=== PATIENT | female | born 1995 | race Caucasian/White ===

== ENCOUNTER 2021-03-09 21:09 | Inpatient (IN) | payer OTHER ==
[~2021-03-09] VITALS: Ht 167.6 cm; Wt 102.3 kg
--- NOTE | 2021-03-09 21:15 | NUR ---
G1 at 38 weeks and 5 days arrives to unit with complaint of spontaneous rupture of membranes around 1830. Pt reports feeling small amounts of leaking intermittently. Pt is a type 2 diabetic. Pt reports feeling good movement. Reports occasionally feeling mild contractions. Denies headaches, blurry vision, or RUQ pain. Clean gown on. Oriented to room, call light within reach, bed in low and locked position. Admission assessment started. Vital signs obtained. Plan of care reviewed with patient and spouse. Amnitrace inconclusive. SVE /-3, membranes felt on exam, no leaking of fluid during exam. ROM plus sent to lab - positive result.
[2021-03-09] MEDS ORDERED: GLUCOPHAGE1000 MG PO (21:30)
[2021-03-09] MEDS ORDERED: PRENATAL TABLET PO (21:31)
[2021-03-09 21:45] VITALS: BP 125/83; PULSE 96; TEMP 97.9
[2021-03-09 22:15] VITALS: BP 130/82; PULSE 98
[2021-03-09 22:45] VITALS: BP 130/82; PULSE 97
--- NOTE | 2021-03-09 22:45 | NUR ---
Pt checked own blood sugar with own glucometer. Blood sugar 89.
[2021-03-09 23:15] VITALS: PULSE 99
[2021-03-09 23:45] VITALS: BP 125/78; PULSE 96
[2021-03-10] VITALS (33 sets, daily range): BP systolic 114–154; BP diastolic 59–85; PULSE 82–117; TEMP 97.7–98.6
--- NOTE | 2021-03-10 03:20 | NUR ---
PT UP TO BATHROOM, REQUEST NEW PERIPAD DUE TO FLUID ON CURRENT ONE. PERIPAD SWABBED, + FOR AMNIOTIC FLUID. WILL ADMIT PT PER DR. JONES'S PREVIOUS ORDERS.
[2021-03-10 04:27] LABS: BASO % 0.3 % (0.0-2.0); EOS # 0.1 (0.0-0.7); GRAN # 8.2 (1.4-6.5); GRAN % 70.7 % (42.2-75.2); HEMATOCRIT 36.2 % (37.0-47.0); HEMOGLOBIN 12.1 g/dl (12.5-16.0); LYMPH # 2.4 (1.2-3.4); MEAN CELL VOLUME 87 fl (80.0-100.0); MEAN CORPUSCULAR HEMOGLOBIN 29 pg (27.0-31.0); MEAN CORPUSCULAR HGB CONC 33 g/dl (33.0-37.0); MEAN PLATELET VOLUME 11.5 fl (7.4-10.4); MONO # 0.8 (0.1-0.6); MONO % 6.6 % (1.7-9.3); PLATELET COUNT 192 K/mm3 (130-400); RED BLOOD COUNT 4.14 M/mm3 (4.10-5.30); REDCELL DISTRIBUTION WIDTH-CV 13.3 % (11.5-14.5)
--- NOTE | 2021-03-10 07:00 | NUR ---
BS 74. DR DODD IN AT 0653. SVE . WANTS PITOCIN TO BE STARTED. 0700 PITOCIN AT 2MU.
--- NOTE | 2021-03-10 07:15 | NUR ---
CONTRACTIONS DIFFICULT TO MONITOR. REPOSITIONED TOCO
--- NOTE | 2021-03-10 08:15 | NUR ---
PT HAVING A GREAT DEAL OF PAIN WITH CONTRACTIONS. WANTING AN EPIDURAL. FLUID BOLUS STARTED. NOTIFIED INESSA CARBALLO.
--- NOTE | 2021-03-10 08:30 | NUR ---
0820 Jakob.INESSA ROWE, IN AT 0820. PT SITTING UP FOR EPIDURAL. UNABLE TO MONITOR FHT'S WHILE PT SITTING. TEST DOSE AT 0828 WITH NO ABNORMAL SYMPTOMS OBSERVED OR REPORTED. BLOOD SURGAR 85
--- NOTE | 2021-03-10 09:00 | NUR ---
FHT'S WITH RECURRENT LATE DECELS AND DIFFICULT TO MONITOR. REPOSITIONED TO WEDGE RIGHT WITH NO CHANGE. REPOSITIONED TO LEFT LATERAL WITH NO CHANGE. DR DODD IN AT [address] FSE
--- NOTE | 2021-03-10 09:15 | NUR ---
FSE PLACED AT [address] DODD. SVE . RECURRENT LATE DECELS CONTINUE. PITOCIN OFF AT 09. EPEHDRINE 10MG GIVEN AT 0908. O2 ON 10L PER REBREATHER REPEAT SVE . EXPLAINED PLAN OF CARE TO PT.
--- NOTE | 2021-03-10 09:30 | NUR ---
O2 OFF AT 0930. NO FURTHER DECELS IN FHT'S. PITOCIN REMAINS OFF.
--- NOTE | 2021-03-10 10:00 | NUR ---
DR DODD IN AT 0952. SVE /1. DR LECHUGA PITOCIN RESTARTED. PITOCIN AT 2MU AT 0953
--- NOTE | 2021-03-10 10:45 | NUR ---
MELÉNDEZ INSERTED WITH CLEAR YELLOW URINE RETURNED. SVE 9-10/100/0. PERICARE PERFORMED.
--- NOTE | 2021-03-10 11:15 | NUR ---
DR DODD AT BEDSIDE REPAIRING PERINEUM. FUNDUS FIRMS WITH MASSAGE. CLOTS MANUALLY REMOVED BY DR. SHIELDS RUNNING AT 333ML/HR.
--- NOTE | 2021-03-10 11:15 | NUR ---
PT WITH COMPLETE DILATION. FHT'S WITH RECURRENT VARIABLES. DR DODD CALLED AT 1110 TO CHECK ON HER STATUS SHE IS IN SURGERY. ADVISES TO START PUSHING AND CONTINUE LONG FHT'S REMAIN REASSURING. PUSHING STARTED.
--- NOTE | 2021-03-10 11:30 | NUR ---
PUSHING STOPPED AT 1128 DUE TO PROLONGED LATE DECEL. PITOCIN OFF AT 1130.
--- NOTE | 2021-03-10 11:45 | NUR ---
PHONED DR DODD AT 1134 TO NOTIFY OF LATE DECELS, PITOCIN OFF, AND PUSHING STOPPED. STATES SHE WILL BE HERE IN LESS THAN [address] MOSCOSO AT 1137. MELÉNDEZ REMOVED. OF FEMALE AT 1143. PITOCIN OFF AFTER DELIVERY OF INFANT. SPONTANEOUS DELIVERY OF PLACENTA AT 1145. PITOCIN ON 333ML/HR AFTER DELIVERY. DR DODD AT BEDSIDE REPAIRING PERINEUM.
--- NOTE | 2021-03-10 15:00 | NUR ---
PT TO BATHROOM. AMBULATES WITHOUT DIFFICULTY. EPIDURAL CATHETER REMOVED. PERICARE PERFORMED. NEW GOWN, UNDERWEAR AND PAD ON. AMBULATES TO ROOM.
[2021-03-11 01:00] VITALS: BP 111/63; PULSE 80; TEMP 97.7
[2021-03-11 08:50] VITALS: BP 114/73; PULSE 89; TEMP 97.7
[2021-03-11 21:00] VITALS: BP 130/75; PULSE 88; TEMP 98.6
[2021-03-12 09:00] VITALS: BP 133/78; PULSE 85; TEMP 97.6
[2021-03-12] MEDS ORDERED: IBU800 M1 PO (11:05)
--- NOTE | 2021-03-12 12:45 | NUR ---
Discharge instructions and paperwork reviewed with pt and at the bedside. Both verbalized an understanding, agreed with the plan and state no questions or concerns at this time.
== END 2021-03-12 13:05 | disposition home or self-care (01) | DRG 807 ==
LOC: LDRO 21:09 → LDR 21:15 → OB 03-10 15:23
PROVIDERS: Obstetrics & Gynecology; ADMIT Obstetrics & Gynecology
PROC: 10E0XZZ Delivery of Products of Conception, External Approach (ICD-10-PCS; principal; 2021-03-10)
PROC: 0KQM0ZZ Repair Perineum Muscle, Open Approach (ICD-10-PCS; 2021-03-10)
DX: O24.12 Pre-existing type 2 diabetes mellitus, in childbirth (principal); Z37.0 Single live birth; O99.214 Obesity complicating childbirth; E66.9 Obesity, unspecified; O70.1 Second degree perineal laceration during delivery; E11.9 Type 2 diabetes mellitus without complications; Z3A.38 38 weeks gestation of pregnancy; Z79.84 Long term (current) use of oral hypoglycemic drugs
CPT/HCPCS: J2590; J7120

== ENCOUNTER → 2021-05-31 | Outpatient (CLI) | payer OTHER ==
[~2021-05-31] MED LIST: GLUCOPHAGE1000 MG PO; IBU800 M1 PO; PRENATAL TABLET PO
--- NOTE | 2021-05-31 13:17 | NUR ---
Pt, Daysi Kim, presents for outpatient consult with 3 month old baby girl, Mandi Kim. Pt states in the last 2-3 weeks Mandi does not stay latched well when she does not have her nursing pillow for feedings, so nursing away from home is difficult. She also reports starting to bottle feed and she notices a clicking noise when Mandi nurses. Mandi was born on [birth year] and weighed 7# 5.1oz (3320 gms). Pt reports Mandi has gain about 2 pounds per month for the first two months of life, and that at Mandi's 2 month appointment she weighed 11# 5oz. Today Mandi weighes 12# 6.2oz. Pt latches Mandi to the left breast without the pillow. As soon as the hand supporting the breast is removed, the nipple pulls away from Mandi and she has to be relatched. LC tries to help position Mandi at the breast without the pillow so she aligns better with the natural height of the nipple, but pt and have difficulty being comfortable. Pt support the breast and baby does a little better. Clicking is noted, especially if the breast is starting to pull away from her. After nursing the left side without the pillow, Mandi has a weight gain of 0.8oz (24 gms). Mandi is placed to the right breast, again struggling to remain latched until the pillow is placed. Once she is supported with the pillow Mandi remains at the breast pretty well and clicking is not noted. After the right breast a gain of 20 gms is observed . Pt places her back to the left breast with the support pillow and Mandi has a total gain of 68 gms. Pt states Mandi had a little bit to eat at 11:45, so may not be nursing as well at 1.25 hours later. However, this LC has some concern about milk production. Pt states she has Nexplanon implants placed for control on May 18, which coincides with the change in feeding behavior as well. Research indicates only 0.9% of users report an effect on milk production. Pt states she is able to pump ~ 1oz after breastfeedings, and in place of a she collects 6-8oz. Mandi drinks ~5oz from bottles when fed is this fashion. Discussion included support of breast to keep baby and breast at the same level. Consider finding a smaller pillow to place under Mandi when feeding away from home. Monitor milk production levels; she will return to work Saturday so can quantify volumes through the work day. Consider having a weight check done in ~2 weeks if supply seems to be trending down. POC: Continue to breastfeed ad beulah, monitor milk supply as noted above, find small support pillows to help Mandi feel secure when away from home. F/U: At [address] Lopez, or earlier if milk supply is trending down. Questions invited and answered.
== END ==
LOC: LAC 12:46
DX: Z39.1 Encounter for care and examination of lactating mother (principal); Z71.89 Other specified counseling

== ENCOUNTER 2023-12-22 06:11 | Inpatient (IN) | payer OTHER ==
[~2023-12-22] VITALS: Ht 167.6 cm; Wt 107.3 kg
[2023-12-22] VITALS (36 sets, daily range): BP systolic 108–161; BP diastolic 58–97; PULSE 60–115; TEMP 97.5–97.9
[2023-12-22] MEDS ORDERED: LR 1,000 ML IV SCH (06:30)
[2023-12-22] MEDS ORDERED: LR & Oxytocin 500 ML IV SCH (06:30)
[2023-12-22 07:38] LABS: BASO % 0.4 % (0.0-2.0); EOS # 0.1 K/mm3 (0.0-0.7); EOS % 0.8 % (0.0-4.0); GRAN # 4.7 K/mm3 (1.4-6.5); GRAN % 63.7 % (42.2-75.2); HEMATOCRIT 37.4 % (37.0-47.0); HEMOGLOBIN 12.4 g/dl (12.5-16.0); LYMPH % 27.3 % (20.0-51.0); MEAN CELL VOLUME 85 fl (80.0-100.0); MEAN CORPUSCULAR HEMOGLOBIN 28 pg (27-31); MEAN CORPUSCULAR HGB CONC 33 g/dl (33.0-37.0); MEAN PLATELET VOLUME 11.9 fl (7.4-10.4); MONO # 0.6 K/mm3 (0.1-0.6); MONO % 7.5 % (1.7-9.3); PLATELET COUNT 188 K/mm3 (130-400); RED BLOOD COUNT 4.42 M/mm3 (4.10-5.30); REDCELL DISTRIBUTION WIDTH-CV 13.5 % (11.5-14.5)
--- NOTE | 2023-12-22 07:54 | NUR ---
Pt and spouse arrive ambulatory to unit at 0615 for scheduled induction of labor. Pt changes into gown, EFM explained and placed, VS taken. Pt denies leaking of fluid, contractions, and vaginal bleeding, reports good movement. IV started in left forearm, labs drawn, LR started per protocol. Assessments done, consents signed, plan for induction discussed, pt verbalizes understanding. SVE 1/50/-2, membranes intact.
[2023-12-22 08:24] LABS: ALBUMIN 3.1 gm/dL (3.5-5.0); BILIRUBIN,TOTAL 0.2 mg/dL (0.2-1.2); CALCIUM 9.1 mg/dL (8.4-10.2); CREATININE, serum 0.64 mg/dL (0.57-1.11); POTASSIUM 3.9 mmol/L (3.5-4.5); TOTAL PROTEIN 6.4 gm/dL (6.2-8.1)
[2023-12-22] MEDS ORDERED: diphenhydrAMINE 50 MG/ML 1 ML VIAL IV PRN (08:30)
[2023-12-22] MEDS ORDERED: ePHEDrine 50 MG/10 ML VIAL IV PRN (08:30)
[2023-12-22] MEDS ORDERED: diphenhydrAMINE 25 MG CAP PO PRN (08:30)
[2023-12-22] MEDS ORDERED: Naloxone 0.4 MG/ML VIAL IV PRN ×2 (08:30→14:00)
[2023-12-22] MEDS ORDERED: Ondansetron 4 MG/2 ML VIAL IV PRN (08:30)
--- NOTE | 2023-12-22 08:59 | NUR ---
Dr. Brown to bedside at 0800. SVE per provider /-2. AROM at this time, clear fluid noted.
--- NOTE | 2023-12-22 09:09 | NUR ---
Pt requesting epidural at this time, INESSA Sinclair notified.
[2023-12-22] MEDS ORDERED: ROPivacaine PF 0.2% 200 ML IV ONE (09:15)
--- NOTE | 2023-12-22 10:05 | NUR ---
0920 - INESSA Sinclair to bedside. Pt repositioned sitting on side of bed for epdidural placement. Difficulty tracing FHR in this position. Test dose given at 0928. Pt repositioned low fowlers at 0933, tolerated procedure well. 0945 - Pt calls out reporting feeling "woozy". BP 87/52. 10mg ephedrine given, LR opened wide, pt repositioned. 0954 - Dr. Brown to bedside. SVE per provider /-2
--- NOTE | 2023-12-22 11:08 | NUR ---
Late decel noted at 1019, RN at bedside during this time. Pt moved to RL position, HR not improved. SVE 4/80/-2, bloody show noted. Pitocin stopped, LR open wide. HR improved to 120s at 1023. Perdue placed. Late decel noted again at 1025, pt repsitioned LL, FHR returns to 130s. Peanut ball placed between pt knees, pt positioned for comfort. Pitocin restarted at [address] Brown on unit and notified, reviewed strip. Pt blood sugar 66, given apple juice.
[2023-12-22] MEDS ORDERED: Lidocaine PF 2% (20 MG/ML) 5 ML VIAL ONE (12:29)
--- NOTE | 2023-12-22 12:42 | NUR ---
Pt reporting unresolving pain in lower abdomen with contractions. INESSA Sinclair called to bedside to evaluate. Pt sitting upright in lanny position, movement to forward leaning for epidural evaluation and dosing. FHR tracing MHR at 1230 and 1232.
[2023-12-22] MEDS ORDERED: Loratadine 10 MG TAB PO PRN (14:00)
[2023-12-22] MEDS ORDERED: Witch Hazel 50% Pads Bulk TUB TP PRN (14:00)
[2023-12-22] MEDS ORDERED: Measles/Mumps/Rubella Virus Vaccine Live w Diluent 0.5 ML VIAL SQ SCH (14:00)
[2023-12-22] MEDS ORDERED: Magnes Hydrox (MOM) 80 MG/ML 30 ML CUP PO PRN (14:00)
[2023-12-22] MEDS ORDERED: Phenylephrine/Mineral Oil/Petrolatum 57 GM TUBE RC PRN (14:00)
[2023-12-22] MEDS ORDERED: Ibuprofen 800 MG TAB PO SCH (14:00)
[2023-12-22] MEDS ORDERED: Acetaminophen 500 MG TAB PO PRN (14:00)
[2023-12-22] MEDS ORDERED: Mag/Al Hydrox/Simeth Susp 30 ML CUP PO PRN (14:00)
[2023-12-22] MEDS ORDERED: oxyCODONE 5 MG TAB PO PRN (14:00)
--- NOTE | 2023-12-22 14:03 | NUR ---
1245 - INESSA Sinclair to bedside. Pt repositioned to sitting on bedside. Epidural catheter removed by Dottie. New catheter placed, test dose at 1259. Pt repositioned low fowlers for comfort. 1319 - Decel noted on monitor, this RN to bedside. Pt repositioned WR, SVE /-1. Dr. Brown notified. 1337 - Dr. Brown to bedside. SVE per provider 9-100/0. Pt repositioned RL with peanut ball
--- NOTE | 2023-12-22 15:07 | NUR ---
1408 - Dr. Brown to bedside. SVE per provider /+3. Amina, RN, charge, and LEONARD Samuels, nursery notified and to bedside. Pt repositioned low fowlers with footplates for delivery. 1417 - Pt starts pushing with contractions. 1421 - Male born via attended by Dr. Brown. placed on mother's abdomen, care of infant transferred to LEONARD Samuels of nursery. Placenta spontaneously delivers at 1424, pitocin started per protocol. Repair of bilateral labial lacerations performed by Dr. Brown. Pericare provided, clean pad and ice pack placed. Pt repositioned for comfort.
[2023-12-22] MEDS ORDERED: Sennosides/Docusate 8.6-50 MG TAB PO SCH (17:00)
[2023-12-22] MEDS ORDERED: MOTRIN 800800 MG/TAB PO (17:26)
[2023-12-22] MEDS ORDERED: traZODone 50 MG TAB PO PRN (21:00)
[2023-12-23 01:10] VITALS: BP 111/67; PULSE 90; TEMP 97.9
[2023-12-23 08:43] VITALS: BP 146/82; PULSE 91; TEMP 97.5
== END 2023-12-23 16:30 | disposition home or self-care (01) | DRG 807 ==
LOC: LDR 06:11 → OB 07:29
PROVIDERS: ADMIT Obstetrics & Gynecology
PROC: 10E0XZZ Delivery of Products of Conception, External Approach (ICD-10-PCS; principal; 2023-12-22)
PROC: 0UQMXZZ Repair Vulva, External Approach (ICD-10-PCS; 2023-12-22)
PROC: 10907ZC Drainage of Amniotic Fluid, Therapeutic from Products of Conception, Via Natural or Artificial Opening (ICD-10-PCS; 2023-12-22)
PROC: 3E033VJ Introduction of Other Hormone into Peripheral Vein, Percutaneous Approach (ICD-10-PCS; 2023-12-22)
DX: O24.12 Pre-existing type 2 diabetes mellitus, in childbirth (principal); Z37.0 Single live birth; O70.0 First degree perineal laceration during delivery; O13.4 Gestational [pregnancy-induced] hypertension without significant proteinuria, complicating childbirth; O99.284 Endocrine, nutritional and metabolic diseases complicating childbirth; E28.2 Polycystic ovarian syndrome; O99.214 Obesity complicating childbirth; E11.8 Type 2 diabetes mellitus with unspecified complications; Z3A.38 38 weeks gestation of pregnancy; Z79.84 Long term (current) use of oral hypoglycemic drugs; Z63.4 Disappearance and death of family member
CPT/HCPCS: J2590; J2795; J7120

== ENCOUNTER 2024-01-15 15:51 | Day surgery (SDC) | payer OTHER ==
[~2024-01-15] VITALS: Ht 165.1 cm; Wt 99.0 kg
[~2024-01-15 15:51] MED LIST changes: +MOTRIN 800800 MG/TAB PO
[2024-01-15] MEDS ORDERED: NS 1,000 ML IV ONE (16:30)
[2024-01-15] MEDS ORDERED: Ketorolac 15 MG/ML VIAL IV ONE (16:45)
[2024-01-15 17:10] LABS: COLLECTION METHOD CLEAN CATCH
[2024-01-15 17:15] LABS: BASO % 0.2 % (0.0-2.0); EOS % 0.1 % (0.0-4.0); GRAN # 8.7 K/mm3 (1.4-6.5); GRAN % 83.1 % (42.2-75.2); HEMATOCRIT 42.4 % (37.0-47.0); HEMOGLOBIN 13.6 g/dl (12.5-16.0); LYMPH # 1.1 K/mm3 (1.2-3.4); LYMPH % 10.6 % (20.0-51.0); MEAN CELL VOLUME 87 fl (80.0-100.0); MEAN CORPUSCULAR HEMOGLOBIN 28 pg (27-31); MEAN CORPUSCULAR HGB CONC 32 g/dl (33.0-37.0); MEAN PLATELET VOLUME 10.3 fl (7.4-10.4); MONO # 0.6 K/mm3 (0.1-0.6); MONO % 5.7 % (1.7-9.3); PLATELET COUNT 283 K/mm3 (130-400); RED BLOOD COUNT 4.85 M/mm3 (4.10-5.30)
[2024-01-15 17:24] LABS: URINE APPEARANCE CLEAR (CLEAR/HAZY); URINE BLOOD 2+ (NEGATIVE); URINE COLOR YELLOW (YELLOW); URINE GLUCOSE NEGATIVE (NEGATIVE); URINE KETONE 3+ (NEGATIVE); URINE NITRATE NEGATIVE (NEGATIVE); URINE PROTEIN(semi-quant) NEGATIVE (NEGATIVE); URINE UROBILINOGEN 0.2 E.U/dL (0.2-1.0)
[2024-01-15 17:40] LABS: ALBUMIN 4.5 gm/dL (3.5-5.0); BILIRUBIN,TOTAL 0.3 mg/dL (0.2-1.2); CALCIUM 9.5 mg/dL (8.4-10.2); CREATININE, serum 0.85 mg/dL (0.57-1.11); POTASSIUM 3.9 mmol/L (3.5-4.5); TOTAL PROTEIN 7.9 gm/dL (6.2-8.1)
[2024-01-15] MEDS ORDERED: Iohexol 300 - 100 ML VIAL IV ONE (18:21)
[2024-01-15] MEDS ORDERED: NS 50 ML IV ONE (18:22)
[2024-01-15] MEDS ORDERED: TYLENOL 500MG500 MG PO (19:26)
[2024-01-15] MEDS ORDERED: metroNIDAZOLE 100 ML IV ONE (19:45)
[2024-01-15] MEDS ORDERED: hydrALAZINE 20 MG/ML 1 ML VIAL IV PRN (20:30)
[2024-01-15] MEDS ORDERED: Ondansetron 4 MG/2 ML VIAL IV PRN ×2 (20:30→22:45)
[2024-01-15] MEDS ORDERED: droPERidol 2.5 MG/ML 2 ML VIAL IV PRN (20:30)
[2024-01-15] MEDS ORDERED: HYDROmorphone 2 MG/1 ML VIAL IV PRN (20:30)
[2024-01-15] MEDS ORDERED: Meclizine 25 MG TAB PO SCH (20:30)
[2024-01-15] MEDS ORDERED: Ketorolac 30 MG/ML VIAL IV PRN (20:30)
[2024-01-15] MEDS ORDERED: LR 1,000 ML IV SCH (20:30)
[2024-01-15] MEDS ORDERED: fentaNYL 50 MCG/ML 2 ML VIAL IV PRN (20:30)
[2024-01-15] MEDS ORDERED: NS 10 ML IV ONE (21:12)
[2024-01-15] MEDS ORDERED: fentaNYL 50 MCG/ML 2 ML VIAL ONE (21:12)
[2024-01-15] MEDS ORDERED: dexAMETHasone 10 MG/ML VIAL ONE (21:12)
[2024-01-15] MEDS ORDERED: Lidocaine PF 2% (20 MG/ML) 5 ML VIAL ONE (21:12)
[2024-01-15] MEDS ORDERED: Ondansetron 4 MG/2 ML VIAL ONE (21:12)
[2024-01-15] MEDS ORDERED: Rocuronium 50 MG/5 ML Multi-Dose VIAL ONE (21:12)
[2024-01-15] MEDS ORDERED: Glycopyrrolate 0.2 MG/ML 1 ML VIAL ONE (21:21)
[2024-01-15] MEDS ORDERED: Ketorolac 30 MG/ML VIAL ONE (21:56)
[2024-01-15 22:36] VITALS: BP 109/67; PULSE 78; TEMP 98
--- NOTE | 2024-01-15 22:36 | NUR ---
PT ARRIVES VIA BED FROM PACU. PT IS AWAKE, ALERT AND ORIENTED. SPOUSE AT BEDSIDE. IVF TO RAC. LAP SITES X3 WITH DRY BANDAIDS.
[2024-01-15] MEDS ORDERED: Morphine 4 MG/ML VIAL IV PRN (22:45)
[2024-01-15] MEDS ORDERED: Acetaminophen 325 MG TAB PO PRN (22:45)
[2024-01-15] MEDS ORDERED: Ibuprofen 400 MG TAB PO PRN (22:45)
[2024-01-15 22:51] VITALS: BP 109/56; PULSE 69
[2024-01-15 23:06] VITALS: BP 109/62; PULSE 69
[2024-01-15 23:21] VITALS: BP 109/56; PULSE 69
[2024-01-15 23:51] VITALS: BP 105/65; PULSE 73
[2024-01-16] VITALS (7 sets, daily range): BP systolic 97–109; BP diastolic 59–68; PULSE 59–77; TEMP 98
--- NOTE | 2024-01-16 01:39 | NUR ---
PT UP TO BATHROOM WITH STEADY GAIT, VOIDS AND BACK TO BED. TYLENOL 650MG PO GIVEN FOR ABD DISCOMFORT. DENIES N/V.
--- NOTE | 2024-01-16 06:57 | NUR ---
MEDICATED WITH TYLENOL 650MG PO FOR ABD PAIN.
--- NOTE | 2024-01-16 08:49 | NUR ---
pt a&ox3 resting in bed. vss. x3 lap sites are cdi. pt denies pain. scds to ble. pt denies needs at this time. call light in reach.
--- NOTE | 2024-01-16 10:30 | NUR ---
INT discontinued. discharge instructions given to pt, all questions answered. escorted pt to personal vehicle by wheelchair.
--- NOTE | 2024-01-16 11:11 | NUR ---
Initial visit; Patient thanked Chaplynne for stopping by and and visiting. Daysi was happy with [employer] offering to keep her in her prayers.
== END 2024-01-16 10:30 | disposition home or self-care (01) ==
LOC: COL.ER 15:51 → SURG 21:15 → COL.ER 21:15 → SDCO 21:15 → SURG 21:16 → COL.ER 21:42 → SURG 01-16 10:30 → SDCO 01-16 10:30 → SURG 01-16 10:30
PROVIDERS: Physician Assistant
DX: O99.63 Diseases of the digestive system complicating the puerperium (principal); K35.80 Unspecified acute appendicitis; O99.285 Endocrine, nutritional and metabolic diseases complicating the puerperium; E28.2 Polycystic ovarian syndrome; Z79.84 Long term (current) use of oral hypoglycemic drugs
CPT/HCPCS: OP; G0378; J0690; J1100; J1836; J1885; J2405; J2704; J3010; J7030; Q9967